=== PATIENT | female | born 2005 | race Caucasian/White ===

== ENCOUNTER 2025-05-15 05:53 | Emergency (ER) | payer OTHER ==
[~2025-05-15] VITALS: Ht 165.1 cm; Wt 60.5 kg
[2025-05-15 08:04] VITALS: BP 107/60; TEMP 98.3; O2SAT 97
[2025-05-15] MEDS ORDERED: ANUS2.5C2 TOP (08:04)
== END 2025-05-15 08:10 | disposition home or self-care (01) ==
LOC: M ED 05:53
DX: K64.4 Residual hemorrhoidal skin tags (principal)